=== PATIENT | male | born 1995 | race Caucasian/White ===

== ENCOUNTER 2025-10-24 22:37 | Emergency (ER) | payer OTHER ==
[~2025-10-24] VITALS: Ht 172.7 cm; Wt 95.0 kg
[2025-10-24 22:57] VITALS: O2SAT 99
[2025-10-24] MEDS: ACETAMINOPHEN 325MG TABLET PO ONE (23:30)
[2025-10-25] MEDS: LIDOCAINE HCL 1% 20ML VIAL INFIL ONE (00:36)
[2025-10-25] MEDS: TETANUS, DIPHTHERIA, PERTUSSIS VAC/PF 0.5ML (>10YR OLD) IM ONE (00:36)
[2025-10-25] MEDS ORDERED: AMOX1TAB16 MT (01:23)
[2025-10-25] MEDS ORDERED: IBUP-1455 MT (01:23)
[2025-10-25 02:16] VITALS: BP 120/78; PULSE 89; RESP 19; TEMP 36.8; O2SAT 99
== END 2025-10-25 02:41 ==
LOC: ER 22:37
DX: S01.81XA Laceration without foreign body of other part of head, initial encounter (principal); Y04.0XXA Assault by unarmed brawl or fight, initial encounter; Y93.89 Activity, other specified; Y92.89 Other specified places as the place of occurrence of the external cause; Y99.8 Other external cause status
CPT/HCPCS: 99285; 70450; 70486; 12011; 90715; 90471; J2003